=== PATIENT | female | born 1950 | race Caucasian/White ===

== ENCOUNTER 2020-06-27 11:19 | Inpatient (IN) | payer MEDICARE, OTHER ==
[~2020-06-27] VITALS: Ht 175.3 cm; Wt 91.0 kg
[2020-06-27] MEDS ORDERED: XARELTO20 MG PO (11:41)
[2020-06-27] MEDS ORDERED: METFORMIN HCL1000 MG PO (11:42)
[2020-06-27] MEDS ORDERED: CARVEDILOL25 MG PO (11:42)
[2020-06-27] MEDS ORDERED: HYDROCHLOROTH12.5 M1 PO (11:42)
[2020-06-27] MEDS ORDERED: GLYBURIDE5 MG PO (11:42)
[2020-06-27] MEDS ORDERED: DORZOLAMIDE-TIM10 ML OU (11:42)
[2020-06-27] MEDS ORDERED: BUPROPION HCL100 MG PO (11:42)
[2020-06-27] MEDS ORDERED: SIMVASTATIN40 MG PO (11:42)
--- NOTE | 2020-06-27 16:20 | NUR ---
Patient arrives to unit via stretcher, able to transfer to bed independently, reports weakness with movement. Vital signs taken, assessment complete. Patient denies pain in labia at this time. This RN in room to continue assessment.
--- NOTE | 2020-06-27 16:34 | NUR ---
Dr. Dudley in room to assess patient and discuss POC
--- NOTE | 2020-06-27 17:45 | NUR ---
Lab in room to draw blood cultures
--- NOTE | 2020-06-27 18:09 | NUR ---
Dr. Araujo in room assessing patient and discussing POC
--- NOTE | 2020-06-27 18:30 | NUR ---
Patient reports feeling nauseous, prn zofran given. Patient requests a bowl of chicken noodle soup, which is accommodated. Brother, Candido, is in room visiting. Patient denies pain or further needs. IV abx finished infusing. Call light within reach.
--- NOTE | 2020-06-27 20:17 | NUR ---
IN TO DO ASSESSMENT AND GIVE HS MEDS. PT C/O 1-05/18 PAIN ON TOP OF SCALP. STATES "MY CROTCH AREA ISNT SO MUCH PAIN, ITS THE TOP OF MY HEAD FROM BEING ON ALL THESE MEDICATIONS". 500MG PO TYLENOL GIVEN. THEN PT STATES "ITS NOT SO MUCH ABOUT PAIN IT IS ABOUT BEING SEDATED. WHAT DO YOU HAVE THAT WILL KNOCK ME OUT?". PT SEEMED SATISFIED TAKING HER TYLENOL AND COREG AND WILL CALL IF SHE WANTS ANYTHING FURTHER. DISCUSSED PLAN OF CARE FOR THE NIGHT, EXPLAINED NEXT DOSE OF IV ANTIBIOTICS AND ONGOING IVF AND UPCOMING BLOOD SUGAR CHECK AND PT IS AGREEABLE.
--- NOTE | 2020-06-27 22:00 | NUR ---
PT ENCOURAGED TO GET UP AND TRY TO VOID, UP TO BSC TO VOID. STEADY ON FEET, ABLE TO VOID 150ML DARK MERI URINE. BACK TO BED. DR BURRELL CALLED TO UPDATE REGARDING URINE OUTPUT.
--- NOTE | 2020-06-27 22:37 | NUR ---
1L LR BOLUS STARTED. PT TRYING TO SLEEP, DENIES NEEDS.
--- NOTE | 2020-06-27 22:43 | EKG ---
[facility] [address] [facility] [place] [id number] Signed Atrial fibrillation Right bundle branch block T wave abnormality, consider inferior ischemia Abnormal ECG No previous ECGs available Confirmed by DALTON BURRELL MD ([id number]) on 06/27/2020 10:42:48 PM Electronically Signed By: DALTON BURRELL MD 06/27/20 2243 PATIENT NAME: LIDA BONILLA Electrocardiogram DATE OF : 52 PHYSICIAN: DALTON BURRELL MD REPORT #: [id number] REPORT IS CONFIDENTIAL AND NOT TO BE RELEASED WITHOUT AUTHORIZATION
--- NOTE | 2020-06-28 | NUR ---
IN TO DO ASSESSMENT AND HANG IV ABX. PT STATES SHE IS TRYING TO SLEEP, DENIES OTHER NEEDS. ORAL TEMP IS 100.4, WILL CONT TO MONITOR. DENIES NEED TO VOID AT THIS TIME.
--- NOTE | 2020-06-28 | NUR ---
IN TO DO ASSESSMENT AND HANG IV ABX. PT WAS SLEEPING, AWAKENS EASILY AND STATES SHE JUST WANTS TO GO BACK TO SLEEP, DENIES PAIN. ORAL TEMP IS 100.8, WILL CONT TO MONITOR.
--- NOTE | 2020-06-28 00:24 | NUR ---
500MG PO TYLENOL GIVEN FOR ORAL TEMP OF 101.4
--- NOTE | 2020-06-28 02:13 | NUR ---
PT RESTING WITH EYES CLOSED, RESP EVEN AND UNLABORED, HR 80'S.
--- NOTE | 2020-06-28 04:15 | NUR ---
PT CALLS BECAUSE SHE DISLODGED HER IV SITE. IV FOUND ON BED, CATHETER TIP INTACT. IV IN UPPER ARM NO LONGER WORKING, NEW IV STARTED IN RIGHT WRIST. PT GOT UP AND AMBULATED TO , HAD BOWEL MOVEMENT AND VOIDED INTO TOILET. IVF RESTARTED. PT NOTICED BROWN DISHCARGE COMING FROM SOMEWHERE, NOT SURE WHERE IT WAS COMING FROM. ONCE PT IN BED, LEFT LABIA AREA INSPECTED AND OPEN SPOT NOTICED AT BOTTOM OF LABIA AREA, DARK BROWN DISCHARGE COMING FROM OPEN SPOT, VERY ODOROUS. AREA CLEANED AND ABD PAD APPLIED TO CATCH DRAINAGE. PT HAS NO REQUESTS AT THIS TIME, WANTING TO TRY TO SLEEP. CALL LIGHT IN REACH.
--- NOTE | 2020-06-28 06:30 | NUR ---
PT WAS ABLE TO SLEEP FOR A BIT, NOW AWAKE THINKING ABOUT BREAKFAST.
--- NOTE | 2020-06-28 08:00 | NUR ---
IN PATIENT'S ROOM FOR ASSESSMENT, VITALS, AND CAREER ADVISOR. PATIENT UP TO BATHROOM - VOIDS AND HAS SMALL BM. PT'S LEFT LABIA CELLULITIS STARTED TO DRAIN A BROWNISH, FOUL SMELLING ODOR THROUGH THE NIGHT. PATIENT ANXIOUS ABOUT BEING IN THE HOSPITAL AND EXPRESSES THIS THROUGH HER FEAR OF AND THE FACT THAT SHE HAS HAD LOVED ONES COME TO THE HOSPITAL AND NEVER RETURN HOME. PLAN OF CARE DISCUSSED WITH PATIENT. PT AFEBRILE AT THIS TIME, BUT HAD ANOTHER FEVER IN THE NIGHT. PT REMAINS IN AFIB, HR 70-90s. PT CHRONICALLY HAS AFIB. PT ACCEPTING OF INSULIN THIS AM, HOWEVER ALSO EXPRESSES HOW HARD SHE HAS BEEN WORKING TO DECREASE HER MEDICATION BURDEN AT HOME.
--- NOTE | 2020-06-28 09:28 | NUR ---
v/s and I&Os done, room picked up. fresh water given. no other needs at this time. call light with in reach
[2020-06-28] MEDS ORDERED: CEPHALEXIN500 MG PO (09:31)
--- NOTE | 2020-06-28 11:11 | NUR ---
DR. BURRELL IN ROOM TO SEE PATIENT AT THIS TIME.
--- NOTE | 2020-06-28 11:52 | NUR ---
CULTURE COLLECTED OF DRAINING AREA ON INNER LEFT LABIA AREA. PT TOLERATED WELL. PT'S PERINEAL AREA REMAINS INFLAMMED, INDURATED, REDENNED. IF PUSHING ON THE LEFT LABIAL AREA, DARK BROWNISH FOUL SMELLING EXUDATE IS NOTED OUT OF A SMALL DARK PENCIL TIP SIZE OF OPENING. NEW ABD PAD PROVIDED TO PLACE IN ATTENDS. PT TO ORDER HER OWN LUNCH. OVERALL PATIENT STATES SHE IS FEELING BETTER COMPARED TO YESTERDAY. AFEBRILE AT THIS TIME. IVF CONTINUE. WILL CONTINUE TO MONITOR. PT GIVEN ORAL POTASSIUM.
--- NOTE | 2020-06-28 13:37 | NUR ---
DR. HOSKINS IN TO SEE PATIENT. PATIENT'S WOUND IS BEING DRAINED MANUALLY AT THE BEDSIDE. IT CONTINUES TO HAVE THE FOUL SMELL AND BROWNISH COLOR. PT ATE MOST OF HER LUNCH. PT TO STAY IN CCU TODAY. CONTINUE TO MONITOR.
--- NOTE | 2020-06-28 13:37 | NUR ---
PT ALERT, ORIENTED AND WHEN I INTRODUCED MYSELF, PT WONDERED IF SOMEONE HAD TOLD ME ABOUT HER. SEEMED MUCH MORE AT EASE WHEN I INFORMED HER I TRY TO VISIT ALL PTS. PT BEGAN TO RELAX AND BEGAN TO TELL ME HER PARRISH JOURNEY.AND TEARS FLOWED, HER FEAR OF HOSPITALS. "IT'S BEEN 60 YRS SINCE I HAVE BEEN IN A HOSPITAL". PEOPLE SHE LOVED ACCORDING TO HER, WENT IN ALIVE AND NEVER CAME OUT ALIVE. GAVE REASURRANCE AND COMFORT. PT ACCEPTED [facility] AND ASKED FOR PRAYER. WILL CONTINUE TO FOLLOW
--- NOTE | 2020-06-28 14:37 | NUR ---
pt. gave herself a bed bath. SYSTEM TRAINER washed her back and hair. bed done room picked up no other needs at this time. call light with in reach
--- NOTE | 2020-06-28 17:01 | NUR ---
Spoke with pt and she states she lives alone in an apartment with 15 steps. She does not use any dme, had sleep study and does NOT have sleep apnea. She drives. Her brother EVETTE lives in [place] and assists her as needed. She denies financial issues and is aware of [employer] and [employer]. She does not use. Plans on dc to home when cleared medically.
--- NOTE | 2020-06-28 17:02 | NUR ---
Pt lives in [place] in a 1 story with his . Has a walker, but does not use. Also uses canes. He and his has custody of their 2 yo granddaughter. Pt states he has noticed weakness for 5 days and h had pneumonia in the past. Plans on dc to home when cleared medically. Denies need for resources or DME.
--- NOTE | 2020-06-28 18:32 | NUR ---
DR. CHEN IN ROOM TO MANUALLY DRAIN HER LABIAL ABSCESSED AREA. MORE DRAINAGE AND EVEN SOME GAS BUBBLES NOTED WHILE DR. Salas DOING THIS. PT NOTIFIED THAT SHE IS GOING TO TRANSFER TO THE MEDICAL FLOOR. PT ANXIOUS ABOUT THIS.
--- NOTE | 2020-06-28 19:45 | NUR ---
CALL LIGHT ANSWERED. SBA. PATIENT WAS UP TO THE TOILET AND BACK TO BED. V/S AND I&O'S DONE AND RECORDED BY PRIMARY RN PERCY.
--- NOTE | 2020-06-28 19:53 | NUR ---
RECEIVED REPORT FROM CCU RN. PATIENT MOVED FROM CCU TO THE FLOOR BY COMMERCIAL LENDING ASSISTANT. PATIENT ORIENTED TO ROOM, FLOOR, AND CALL LIGHT. PATIENT DENIES ANY QUESTIONS OR CONCERNS AT THIS TIME. PATIENT DENIES ANY NEEDS. CALL LIGHT IN REACH.
--- NOTE | 2020-06-28 20:20 | NUR ---
PATIENT ASSEMENT COMPLETED. PATIENT DENIES ANY PAIN. PATIENTS VITALS TAKEN AND RECORDED. INTAKE AND OUPUT RECORDED. PATIENT CONTINUES TO HAVE BROWN COLORED DRAINAGE FROM ANNAMARIE AREA. PATIENTS IV INFUSING PER ORDER. PATIENTS BS WAS 144. PATIENT REFUSED INSULIN AT THIS TIME. PATIENT EDUCATED ON IMPORTANCE OF INSULIN AND CONTROLLING BS. PATIENT PROVIDED WITH FRESH ICE WATER. NO FURTHER NEEDS NOTED. CALL LIGHT IN REACH.
--- NOTE | 2020-06-28 21:33 | NUR ---
PT IV ALARMING. PT STATED SHE HAD "JUST GOT INTO A DEEP SLEEP". CALL LIGHT WITHIN REACH. NO OTHER NEEDS.
--- NOTE | 2020-06-28 22:47 | NUR ---
PATIENT ASSISTED TO THE RESTROOM A 1PA. PATIENT WAS ABLE TO VOID AND HAVE LOOSE BM. PATIENT PROVIDED WITH FRESH PAD AND MESH PANTIES. PATIENT HAS DRAINAGE NOTED ON ANNAMARIE PAD. PATIENT IS BACK IN BED RESTING. NO FURTHER NEEDS NOTED. CALL LIGHT IN REACH.
--- NOTE | 2020-06-28 23:45 | NUR ---
SCHEDULED MEDICATIONS GIVEN PER ORDER. PATIENT DENIES ANY PAIN. PATIENT REPORTS CONCERN OF AN ELEVAETD TEMP. TEMP TAKEN PER PATIENTS REQUEST AND FOUND TO BE 98.8. NO FURTHER NEEDS NOTED. CALL LIGHT IN REACH.
--- NOTE | 2020-06-28 23:45 | NUR ---
CALL LIGHT ANSWERED. SBA TO THE BATHROOM AND BACK TO BED. PATIENT REFUSED TO PUT SOCKS ON. PATIENT REFUSED TO HAVE THE HAT ON TO THE TOILET. PRIMARY RN WAS WITH PATIENT.
--- NOTE | 2020-06-29 00:07 | NUR ---
PATIENT ASSISTED TO THE RESTROOM BY AUDIE MOREL. UPON RETURNING BACK TO BED PATIENT BECAME NAUSEOUS. PATIENT PROVIDED WITH PRN NAUSEA MEDICATION AND COOL RAG. PATIENT DENIES ANY FURTHER NEEDS. CALL LIGHT IN REACH.
--- NOTE | 2020-06-29 02:24 | NUR ---
REPOSITIONED PILLOW UNDER PATIENTS LEFT UPPER THIGH PER REQUEST. PATIENT DENIED ANY PAIN WITH MOVEMENT OR AT REST. PATIENT DENIES ANY FURTHER NEEDS. CALL LIGHT IN REACH.
--- NOTE | 2020-06-29 03:52 | NUR ---
PATIENT IS RESTING IN BED WITH EYES CLOSED, RR 17. CALL LIGHT IN REACH.
--- NOTE | 2020-06-29 04:21 | NUR ---
PATIENT ASSISTED TO THE RESTROOM A SBA. PATIENT WAS ABLE TO VOID. PATIENT IS NOW BACK IN BED RESTING. PATIENT DENIES ANY PAIN OR NAUSEA. PATIENT DENIES ANY FURTHER NEEDS. PATIENTS TEMP CHECKED PER REQUEST AND TEMP WAS 97.5. CALL LIGHT IN REACH.
--- NOTE | 2020-06-29 04:43 | NUR ---
PATIENT RESTED WELL THROUGHOUT THE SHIFT. PATIENT IS ON A 60G DIET. PATIENT IS ON RA. PATIENT IS A SBA. PATIENTS ANNAMARIE ARE HAS BROWN COLORED DRAINAGE AND UPPER ANNAMARIE AREA IS RED AND HARD TO THE TOUCH. PATIENT DENIES PAIN. PATIENT RECEIVED PRN NAUSEA MEDICATION X1. PATIENT IS AAOX4 AND USES CALL LIGHT APPROPRIATELY.
--- NOTE | 2020-06-29 07:04 | NUR ---
CANOPY INSPECTOR IN ROOM TO TAKE VITALS. PATIENT DENIES ANY NEEDS. CALL LIGHT IN REACH.
--- NOTE | 2020-06-29 07:15 | NUR ---
SHIFT REPORT FROM PERCY PERDUE INCLUDED: pt has some anxiety (her baseline) about cares, and RN encourages us to cluster cares as much as possible to ease the pts mind and not overstimulate. pt is getting her abcess drained by MD Lorrie Dos Santos. pt had a fever while in CCU, and current orders are to collect another sample for cultures is pts fever gets >100.7. pt currently in bed, eyes closed, breathing even and unlabored, table and call light within reach.
--- NOTE | 2020-06-29 08:00 | NUR ---
ASSESSMENT + MED PASS + CBG pt assessment complete, VSS, pt is afebrile at this time. pt cellulitis/abcess site appears red and swollen, pt reports its actually improved from yesterday since it appears "smaller and less filled out". pt reports that there is 1/10 tolerable intermittent pain to the area, and none at this time. pt CBG was 150, 1 unit insulin given per sliding scale orders. pt denies further needs at this time, table and call light within reach, pt having breakfast sitting upright in bed.
--- NOTE | 2020-06-29 10:00 | NUR ---
ROUNDING pt in bed, watching tv at this time. table and call light within reach. pt denies needs.
--- NOTE | 2020-06-29 11:15 | NUR ---
PATIENT UP IN CHAIR, AM CARE DONE. LINEN CHANGED, CALL LIGHT AND PERSONAL ITEMS WITHIN REACH
--- NOTE | 2020-06-29 12:10 | NUR ---
CBG + MED PASS pts CBG was 257, 5 units insulin given per sliding scale orders. pt up to chair, linens have been changed by DIVISION TOLL WIRE CHIEF, pt having lunch at this time. pt denies pain and nausea. table and call light within reach.
--- NOTE | 2020-06-29 13:49 | NUR ---
PATIENT UP IN CHAIR, VITALS AND I&OS CAHRTED. DR CHEN AT BEDSIDE NOW.
--- NOTE | 2020-06-29 13:59 | NUR ---
PT SITTING UP IN BED, WATCHING TV. SHE IS ALERT AND ORIENTED AND INFORMED ME THAT SHE IS FEELING BETTER. HER WHITE COUNTS ARE IMPROVING. HAD GOOD VISIT WITH PT. GAVE BLESSING AND WILL FOLLOW
--- NOTE | 2020-06-29 14:29 | NUR ---
ADMINISTERED SCHEDULED VANCO. UNPLUGGED PT IV PUMP FOR AMBULATING IN THE BOCANEGRA.
--- NOTE | 2020-06-29 15:30 | NUR ---
Spoke with Scooby while she is walking in the ambriz. States she is feeling better. Denies needs. She then states one visit with me was enough yesterday.
--- NOTE | 2020-06-29 15:33 | NUR ---
ADMISSION SCREENING TRIGGERED A "NUTRITION NOT WNL" FROM HAVING A POOR APPETITE FOR 3 DAYS PRIOR TO ADMISSION. PATIENT STATES SHE IS FEELING A LOT BETTER THIS AFTERNOON AND SHE JUST FINISHED WALKING IN THE HALLS. SHE SAID SHE IS EATING BETTER. SHE WAS NIBBLING ON HER SANDWICH FROM LUNCH WHEN I WAS TALKING TO HER AND SHE HAS A SNACK ON HER BEDSIDE TABLE. SHE HAS TYPE 2 DM AND HAS BEEN WORKING HARD TO GET HER BLOOD SUGARS DOWN TO WHERE SHE DIDN'T NEED TO TAKE ANY MEDICATIONS, BUT THEN SHE GOT THIS INFECTION AND HER BLOOD SUGARS WENT UP. SHE HAS GOOD SPIRITS ABOUT HOW THINGS ARE GOING FOR HER HERE. SHE DOES NOT APPEAR TO BE AT NUTRITION RISK AT THIS TIME. WILL CONTINUE TO MONITOR.
--- NOTE | 2020-06-29 17:00 | NUR ---
MED PASS pt able to take all meds without difficulty. pt denies pain and nausea at this time. pt in chair, table and call light within reach.
--- NOTE | 2020-06-29 17:30 | NUR ---
MED PASS + CBG CBG was 297, 7 units given per sliding scale orders. pt up to bathroom at this time. pt back to chair. table and call light within reach.
--- NOTE | 2020-06-29 20:02 | NUR ---
RECEIVED REPORT FROM DAY SHIFT RN. PATIENT IS UP PACING ROOM. PATIENT REASSURED ABOUT CARE AND HOSPITAL STAY PATIENT IS NOW IN BED RESTING. NO NEEDS NOTED. CALL LIGHT IN REACH.
--- NOTE | 2020-06-29 21:30 | NUR ---
ULTRASOUND IN PATIENTS ROOM AT THIS TIME.
--- NOTE | 2020-06-29 22:00 | NUR ---
PATIENT ASSESMENT COMPLETED. PATIENTS VITALS TAKEN AND RECORDED. INTAKE AND OUPUT RECORDED. PATIENTS INTAKE AND OUPUT RECORDED. PATIENTS EVENING MEDICATIONS GIVEN PER ORDER. PATIENT DENIES ANY PAIN OR NAUSEA. PATIENT IS ON RA. PATIENT REMAINS INDEPENDENT IN THE ROOM. PATIENT IS SL AND IV FLUSHES WELL. PATIENT PROVIDED WITH FRESH ICE WATER. PATIENT DENIES ANY FURTHER NEEDS. CALL LIGHT IN REACH.
--- NOTE | 2020-06-30 00:23 | NUR ---
NEW IV STARTED. PATIENT TOLERATED ACTIVITY WELL. ABX INFUSING PER ORDER. PATIENT DENIES ANY PAIN OR NAUSEA. NO NEEDS NOTED. CALL LIGHT IN REACH.
--- NOTE | 2020-06-30 02:03 | NUR ---
PATIENT IS RESTING IN BED WITH EYES CLOSED, RR 17. KISHA LIGHT IN REACH.
--- NOTE | 2020-06-30 02:25 | NUR ---
IN TO SBA PT TO TOILET, PT STATES SHE'LL "BE IN FOR AWHILE", LET HER KNOW RN WILL BE SHORTLY TO CHECK IV FLUIDS
--- NOTE | 2020-06-30 02:47 | NUR ---
PATIENT UP TO USE THE RESTROOM. PATIENT WAS ABLE TO VOID. PATIENT IS NOW BACK IN BED RESTING. SCHEDULE ABX INFUSING PER ORDER. PATIENT DENIES ANY PAIN OR NASUEA. NO NEEDS NOTED. CALL LIGHT IN REACH.
--- NOTE | 2020-06-30 04:08 | NUR ---
ABX COMPLETED INFUSING. PT IS NOW SL. PATIENT DENIES ANY NEEDS. CALL LIGHT IN REACH.
--- NOTE | 2020-06-30 05:09 | NUR ---
PATIENT RESTED WELL THROUGHOUT THE SHIFT. PATIENT IS ON A 60G DIET. PATIENT IS ON RA. PATIENT IS SL. PATIENTS ANNAMARIE ARE HAS BROWN COLORED DRAINAGE AND UPPER ANNAMAREI AREA IS RED AND HARD TO THE TOUCH. PATIENT DENIES PAIN. PATIENT IS INDEPENDNET IN THE ROOM. PATIENT IS AAOX4 AND USES CALL LIGHT APPROPRIATELY.
--- NOTE | 2020-06-30 06:45 | NUR ---
IN TO GET VITALS, PT UP TO TOILET RECENTLY, NO FURTHER NEED AT THIS TIEM
--- NOTE | 2020-06-30 07:02 | NUR ---
PATIENTS MORNING MEDICATIONS GIVEN PER ORDER. PATIENT DENIES ANY PAIN OR NAUSEA. NO NEEDS NOTED. CALL LIGHT IN REACH.
--- NOTE | 2020-06-30 07:15 | NUR ---
SHIFT REPORT FROM PERCY PERDUE INCLUDED: pt had some anxiety at start of shift but it resolved through the evening and pt was able to get some rest. pts groin/labial area redness increased. pt had an otherwise uneventful evening. pt currently in bed, breathing even and unlabored, table and call light within reach.
--- NOTE | 2020-06-30 08:00 | NUR ---
ASSESSMENT + MED PASS + CBG pt assessment complete, VSS. pt denies pain and nausea at this time. pt occassionally talks to herself and consoles self about anxieties. pt reports that she IS anxious, but feels like she "will be ok" but occassionally mentions her anxiety meds (she couldnt recall the name), and that she sometimes "freaks out" and "gets aggressive" and "becomes bitchy". pt assured of her progress and her cares and therapeutic communication used. pt seemed to respond well at this time. pt in chair. pts CBG was 204, 3 units insulin given per sliding scale orders. pt able to take all morning meds without difficulty. pt in chair, table and call light within reach.
--- NOTE | 2020-06-30 10:35 | NUR ---
NEWLY ORDERED MED PASS pt in chair, watching TV. pt able to take med without difficulty. pt denies needs at this time. table and call light within reach.
--- NOTE | 2020-06-30 11:30 | NUR ---
CBG + MED PASS pts CBG was 204, 3 units given per sliding scale orders. pt in chair, awaiting lunch. table and call light within reach.
--- NOTE | 2020-06-30 12:30 | NUR ---
ROUNDING pt in room, sitting up to chair, watching tv. pt denies pain and nausea at this time. table and call light within reach.
--- NOTE | 2020-06-30 13:30 | NUR ---
ROUNDING pt in room, sitting up to chair, watching tv. pt denies pain and nausea at this time. table and call light within reach.
--- NOTE | 2020-06-30 14:30 | NUR ---
ROUNDING pt in shower at this time. call lights within reach.
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
--- NOTE | 2020-06-30 16:00 | NUR ---
ROUNDING pt in room, sitting up to chair, visiting with brother. pt denies pain and nausea at this time. table and call light within reach.
--- NOTE | 2020-06-30 17:00 | NUR ---
CBG + MED PASS pts CBG was 205, 3 units insuling given per sliding scale orders. pt able to take all meds without difficulty. table and call light within reach.
--- NOTE | 2020-06-30 19:46 | NUR ---
RECEIVED REPORT FROM DAY SHIFT RN. PATIENT IS UP TO RESTROOM NO NEEDS NOTED. CALL LIGHT IN REACH.
--- NOTE | 2020-06-30 20:40 | NUR ---
PATIENT ASSESMENT COMPLETED. PATIENTS VITALS TAKEN AND RECORDED. PATIENT DENIES ANY PAIN OR NASUEA. PATIENT ASSISTED FROM THE RECLINER TO THE BED. PATIENTS INTAKE AND OUPUT RECORDED. PATIENT DENIES ANY PAIN OR NAUSEA. PATIENT GIVEN SCHEDULED MEDICATIONS PER ORDER. PATIENT DENIES ANY NEEDS AT THIS TIME. CALL LIGHT IN REACH.
--- NOTE | 2020-06-30 23:51 | NUR ---
PATIENT IS RESTING IN BED WITH EYES CLOSED, RR 17. CALL LIGHT IN REACH.
--- NOTE | 2020-07-01 02:43 | NUR ---
PATIENTS SCHEDULED MEDICATIONS GIVEN PER ORDER. PATIENT DENIES ANY PAIN OR NAUSEA. CRACKERS AND SF SODA PROVIDED. PATIENT DENIES ANY FURTHER NEEDS. CALL LIGHT IN REACH.
--- NOTE | 2020-07-01 04:25 | NUR ---
PATIENT IS RESTING IN BED WITH EYES CLOSED, RR 17. CALL LIGHT IN REACH.
--- NOTE | 2020-07-01 05:02 | NUR ---
PATIENT RESTED WELL THROUGHOUT THE SHIFT. PATIENT IS ON A 60G DIET. PATIENT IS ON RA. PATIENTS ANNAMARIE ARE HAS BROWN COLORED DRAINAGE AND UPPER ANNAMARIE AREA IS RED AND HARD TO THE TOUCH. PATIENT DENIES PAIN. PATIENT IS INDEPENDENT IN THE ROOM. IV IS TKO AT THIS TIME. NO NAUSEA NOTED. PATIENT IS AAOX4 AND USES CALL LIGHT APPROPRIATELY.
--- NOTE | 2020-07-01 05:14 | NUR ---
PATIENTS VITALS TAKEN AND RECORDED. PATIENT UP TO THE RESTROOM. PATIENT ABLE TO VOID. INTAKE AND OUPUT RECORDED. NO NEEDS NOTED. CALL LIGHT IN REACH. IV REMAINS TKO. CALL LIGHT AND BELONGINGS WITHIN REACH.
--- NOTE | 2020-07-01 07:41 | NUR ---
this rn received report from brian golden. pt iw awake and is walking back from the restroom at this time. pt states that the netted underwear are uncomfortable this am, this rn offered depends underwear that are more comfortable for women and their creases, pt stated this sounds better. pt states that she hasn't noted any drainage this am and no pain.
--- NOTE | 2020-07-01 08:15 | NUR ---
THIS RN IN PTS ROOM TO CHECK ON PT AND GIVE MORNING MEDS. PT STATES THAT THE DEPENDS ARE HELPING NOT "TO FLOSS" HER LADY PARTS. PT STATES THAT SHE HAS NO CONCERNS THIS AM.
--- NOTE | 2020-07-01 12:32 | NUR ---
PT SITTING IN CHAIR, WATCHING TV. PT MENTIONED SHE IS WAITING ON LABS, AND NOT FEELING QUITE READY FOR DC. GAVE ENCOURAGEMENT AND BLESSING
--- NOTE | 2020-07-01 14:45 | NUR ---
THIS RN IN PTS ROOM TO CHECK ON PT. PT STATES THAT SHE IS FEELING ANXIOUS. THIS RN DISUCSSED WITH HER THAT WHEN LISA WATCHSTANDER IS DONE DRAWING BLOOD WE WILL KNOW MORE ABOUT HOW SHE IS DOING. PT STATES THAT TOLD HER THAT SHE IS STARTING TO GET BETTER AND THAT HER DIABTIS WILL MAKE IT SLOWER FOR HER TO GET BETTER. THIS RN ADDED ON EDUCATION ABOUT THIS, PT STATED UNDERSTANDING AND IS READY TO HEAR LAB RESULTS
--- NOTE | 2020-07-01 16:30 | NUR ---
THIS RN IN PTS ROOM TO START PTS VANCO. PT SITTING UP TO CHAIR AND STATES THAT SHE DID HAVE SOME DISCHARGE THIS AFTERNOON IN THE PAD. THIS RN NOTED THAT IS WAS A MODERATE AMOUNT OF DRAINAGE THAT APPEARED DARK RED/ BROWNISH IN COLOR. PT DENIES ANY PAIN AND THIS IS THE ONLY NOTED DRAINAGE TODAY
--- NOTE | 2020-07-01 17:30 | NUR ---
THIS RN IN PTS ROOM TO PASS PTS EVENING MEDS. PT SITTING IN THE CHAIR AND STATES THAT HER ANXIETY LEVEL IS MUCH BETTER AFTER HEARING THAT HER LABS ARE TRENDING DOWN TO THE RIGHT WAY. PT HAS NO OTHER CONCERNS AT THIS TIME
--- NOTE | 2020-07-01 18:29 | NUR ---
PATIENT AWAKE IN CHAIR, VITALS AND I&OS CHARTED. CALL LIGHT AND PERSONAL ITEMS WITHIN EASY REACH, NO OTHER NEEDS AT THIS TIME
--- NOTE | 2020-07-01 21:21 | NUR ---
THIS RN ORIENTING FLIGHT TEST DATA ACQUISITION TECHNICIAN, IN ROOM TO ROUND. pt AWAKE AND RESTING IN BED, PRIMARY RN GENET IN ROOM. COSIGNED SCHEDULED INSULIN. NO NEEDS VERBALIZED AT THIS TIME. CALL LIGHT REMAINS IN EASY REACH.
--- NOTE | 2020-07-01 21:27 | NUR ---
Pt up in chair, independent in room, cooperative, talkative. SL to tko to prevent iv clogging. redness and edema of pubic area present. voiding QS yellow urine. CBG 190 received 3 units SQ Humolog Insulin. procedures explained, cooperative. tolerating fluids well
--- NOTE | 2020-07-01 22:57 | NUR ---
RESTING, IN BED, NO RESP DISTRESS, EYES CLOSED, IVF INFUAING,
--- NOTE | 2020-07-02 00:40 | NUR ---
CALL LIGHT ON, PT SBA/INDP UP TO THE BATHROOM WITH IV POLE, NO FURTHER NEEDS AT THIS TIME
--- NOTE | 2020-07-02 03:09 | NUR ---
IV INFILTRATED, REPLACED, COOPERATIVE, PROCEDURE EXPLAINED, HYPERVERBAL AND FIDGETY, EASILY REORIENTED. IVF INFUSING. PINK CREAMY VAGINAL DISCHARGE NOTED IN ATTENDS.
--- NOTE | 2020-07-02 05:26 | NUR ---
Up to br, voiding QS, semi indeoendent in room. IVF infusing w/o problems, no c/o adverse reaction to vancomycin IV abx. Red and edematous pubic/otto area, pink cloudy drainage from L labia present. coop with assessment, hyperverbalk and fidgetty at times, easily redirectable, cooperative. has denies need for pain meds. tolerating fluids and diet.
--- NOTE | 2020-07-02 07:45 | NUR ---
this rn received report from donald golden. pt sitting up in chair and states thst she is doing well today and needs nothing at this time
--- NOTE | 2020-07-02 07:55 | NUR ---
this rn in pts room to give pt her morning meds and do morning assessment =. pt in bed and states that she is ready to get to the chair for brakfast. pt required minimal help to get to the bed due to the bed being so low. pt steady on her feet. pt denies pain at this time and denies any drainage this am. all questions answered and pt to eat her breakfast.
[2020-07-02] MEDS ORDERED: LEVOFLOXACIN500 MG PO (10:46)
--- NOTE | 2020-07-04 18:45 | DS ---
[facility] [address] [place] [address] [place], [place] [address] Signed ADMISSION DATE: 06/27/2020 DISCHARGE DATE: 07/02/2020 REASON FOR ADMISSION: Vulvar cellulitis with sepsis. SECONDARY DIAGNOSES: 1. Type 2 diabetes. Electronically Signed By: DEB CHEN DO 07/04/20 1845 PATIENT NAME: LIDA BONILLA DISCHARGE SUMMARY DATE OF : 52 REPORT #: [id number] PHYSICIAN: DEB CHEN DO PCP: OSIEL BALLESTEROS MD REPORT IS CONFIDENTIAL AND NOT TO BE RELEASED WITHOUT AUTHORIZATION [address] [place], [place] [address] Signed 2. Hypertension. 3. Atrial fibrillation. 4. Depression. CLINICAL FINDINGS: The patient presented to outpatient setting with complaints of vulvar swelling. On exam, she was noted to have significant erythema and induration of her left labia extending up into the left side of her mons pubis, but not beyond the hairline. With significant concern for abscess, she was sent directly to the ED for further evaluation where she was found to be febrile. CT was performed and was negative for abscess or other areas of fluid collection or loculation. PROCEDURE PERFORMED AND TREATMENT RENDERED: The patient was admitted to critical care unit due to sepsis with Internal Medicine consulted for these conditions as well as comorbid conditions including type 2 diabetes, hypertension, atrial fibrillation, and depression. She was started on vancomycin, Rocephin, and IV Flagyl. Blood cultures were collected. On hospital day #2, she began having purulent malodorous thick brown discharge from her labial swelling. This was collected for culture and Gram stain. Gram stain was significant for numerous gram-positive cocci and a few gram-negative rods. At this point, Flagyl was discontinued. Labial swelling began to gradually improve as swelling overlying the mons persisted and extended to include the right-sided labia. Imaging was repeated at this time via the ultrasound, which continued to be negative for areas of abscess formation or other fluid collection. IV antibiotic therapy was continued. The patient was moved to the med/surg floor after initial stabilization of sepsis. Final aerobic culture results of the purulent discharge significant for Streptococcus constellatus with sensitivities resulting. The patient has been stabilized medically and is being discharged home on levofloxacin 500 mg p.o. daily for 7 additional days of therapy per Internal Medicine recommendation and sensitivity reports. DISCHARGE DISPOSITION: Home in stable condition. DISCHARGE INSTRUCTIONS: 1. The patient will go home on levofloxacin 500 mg p.o. daily for 7 additional days. Her home medications will be continued with the only change at this point being carvedilol full tablet b.i.d. instead of half tablet b.i.d. The patient reports having sufficient medication that she does not need additional refill at this time. 2. Diabetic diet. Followup plans with primary care provider within the week and myself ATHLETIC MONITOR within the next 3 days for close outpatient followup. Unrestricted activity at Electronically Signed By: DEB CHEN DO 07/04/20 1845 PATIENT NAME: LIDA BONILLA DISCHARGE SUMMARY DATE OF : 52 REPORT #: [id number] PHYSICIAN: DEB CHEN DO PCP: OSIEL BALLESTEROS MD REPORT IS CONFIDENTIAL AND NOT TO BE RELEASED WITHOUT AUTHORIZATION [facility] [address] [place], [place] [address] Signed this time. All the patient's questions were answered to the best of my ability prior to discharge and to her apparent satisfaction. DO TAE Bailey/NILESH /[id number] Copies: ~ Electronically Signed By: DEB CHEN DO 07/04/20 1845 PATIENT NAME: LIDA BONILLA DISCHARGE SUMMARY DATE OF : 52 REPORT #: [id number] PHYSICIAN: DEB CHEN DO PCP: OSIEL BALLESTEROS MD REPORT IS CONFIDENTIAL AND NOT TO BE RELEASED WITHOUT AUTHORIZATION
== END 2020-07-02 12:07 | disposition home or self-care (01) | DRG 872 ==
LOC: ED 11:19 → CCU 16:09 → MS 06-28 08:05 → CCU 06-28 08:08 → MS 06-28 19:42
PROVIDERS: ADMIT Obstetrics & Gynecology; ATTEND Obstetrics & Gynecology
DX: A40.8 Other streptococcal sepsis (principal); I48.21 Permanent atrial fibrillation; N76.2 Acute vulvitis; Z20.822 Contact with and (suspected) exposure to COVID-19; I10 Essential (primary) hypertension; E11.9 Type 2 diabetes mellitus without complications; E78.5 Hyperlipidemia, unspecified; F32.9 Major depressive disorder, single episode, unspecified; H40.9 Unspecified glaucoma; E66.9 Obesity, unspecified; Z88.0 Allergy status to penicillin; Z79.899 Other long term (current) drug therapy; Z79.01 Long term (current) use of anticoagulants; Z79.84 Long term (current) use of oral hypoglycemic drugs; Z68.29 Body mass index [BMI] 29.0-29.9, adult
CPT/HCPCS: 36415; 72193; 76857; 80048; 80053; 80202; 83036; 83605; 83735; 85007; 85025; 85032; 87040; 93005; 93010; C9803; J0696; J1815; J2405; J3370; J3490; J7050; J7060; J7121; Q9967; U0003

== ENCOUNTER 2020-07-07 14:12 | Emergency (ER) | payer MEDICARE, OTHER ==
[~2020-07-07] VITALS: Ht 175.3 cm; Wt 102.7 kg
[~2020-07-07 14:12] MED LIST: BUPROPION HCL100 MG PO; CARVEDILOL25 MG PO; CEPHALEXIN500 MG PO; DORZOLAMIDE-TIM10 ML OU; GLYBURIDE5 MG PO; HYDROCHLOROTH12.5 M1 PO; LEVOFLOXACIN500 MG PO; METFORMIN HCL1000 MG PO; SIMVASTATIN40 MG PO; XARELTO20 MG PO
--- OUTSIDE RECORDS SUMMARY | 2020-07-07 14:14 | XMS ---
PreManage Notification: LIDA BONILLA [employer] Events No recent Security Events currently on file CRITERIA MET - History of Sepsis Dx - [facility] - 2 Visits in 30 Days CARE PROVIDERS There are no care providers on record at this time. Dinesh has no Care Guidelines for this patient. [facility] MO.) [facility] NOTE: Visits indicate total known visits. ED/UCC VISIT TRACKING (12 MO.) [facility]07[facility]2020 14[facility] COMPLAINT: - HIGH B/P 06/27/2020 11:20 [facility] TYPE: Emergency COMPLAINT: - POSSIBLE ABSCESS INPATIENT VISIT TRACKING (12 MO.) 06/27/2020 16:09 [facility] TYPE: Medical Surgical COMPLAINT: - LEFT LABIAL ABCESS DIAGNOSES: - nursing home (current) use of oral hypoglycemic drugs - Obesity, unspecified - long term care pharmacist (current) use of oral hypoglycemic drugs - Essential (primary) hypertension - Body mass index [BMI] 29.0-29.9, adult - Other streptococcal sepsis - Major depressive disorder, single episode, unspecified - Body mass index [BMI] 29.0-29.9, adult - Hyperlipidemia, unspecified - Permanent atrial fibrillation - nursing home (current) use of anticoagulants - Acute vulvitis - Allergy status to penicillin - Acute vulvitis - Permanent atrial fibrillation - Major depressive disorder, single episode, unspecified - Unspecified glaucoma - Other skilled nursing (current) drug therapy - Sepsis, unspecified organism - nursing home (current) use of anticoagulants - Other skilled nursing (current) drug therapy - Unspecified glaucoma - Hyperlipidemia, unspecified - Obesity, unspecified - Type 2 diabetes mellitus without complications - Allergy status to penicillin - Type 2 diabetes mellitus without complications - Other streptococcal sepsis - Essential (primary) hypertension [email or web address]
[2020-07-07] MEDS ORDERED: LASIX20 MG PO (18:02)
[2020-07-07] MEDS ORDERED: K-TAB10 MEQ PO (18:02)
--- NOTE | 2020-07-08 12:47 | EKG ---
[facility] [address] [facility] [place], [place] [address] Signed Atrial fibrillation Right bundle branch block Abnormal ECG When compared with ECG of 27-JUN-2020 12:01, No significant change was found Confirmed by GREGORIA CAST DO ([id number]) on 07/08/2020 12:46:58 PM Electronically Signed By: GREGORIA CAST DO 07/08/20 1247 PATIENT NAME: BONILLALIDA Electrocardiogram DATE OF : 52 PHYSICIAN: GREGORIA CAST DO REPORT #: [id number] REPORT IS CONFIDENTIAL AND NOT TO BE RELEASED WITHOUT AUTHORIZATION
== END 2020-07-07 18:20 | disposition home or self-care (01) ==
LOC: ED 14:12
DX: I10 Essential (primary) hypertension (principal); R60.0 Localized edema; E11.9 Type 2 diabetes mellitus without complications; E78.00 Pure hypercholesterolemia, unspecified; I48.91 Unspecified atrial fibrillation; Z88.0 Allergy status to penicillin; Z79.899 Other long term (current) drug therapy; Z79.84 Long term (current) use of oral hypoglycemic drugs
CPT/HCPCS: 71045; 80053; 81001; 83605; 83735; 83880; 84484; 85025; 93005; 93010; 96365; 96375; 99284-25; J1940; J3475

== ENCOUNTER 2022-11-09 09:25 | Day surgery (SDC) | payer MEDICARE, OTHER ==
[2022-11-05 11:17] VITALS: BP 203/76
[~2022-11-09] VITALS: Ht 175.3 cm; Wt 90.0 kg
[~2022-11-09 09:25] MED LIST changes: +K-TAB10 MEQ PO; +LASIX20 MG PO
[2022-11-09 09:42] VITALS: BP 156/69
--- NOTE | 2022-11-09 12:01 | NUR ---
11/09/22 1201 Fabiola Fine 1149- PT ARRIVES TO PACU AWAKE, STATES "I'M READY TO GO OUT OF HERE". MONITORS APPLIED. PT COMES IN ON O2 BUT REMOVES ON OWN. TOLERATING WELL. PT TALKING FULL SENTENCES AND ASKING QUESTIONS.
[2022-11-09 12:25] VITALS: BP 206/75
--- NOTE | 2022-11-09 14:14 | OR ---
[facility] [address] [place], [place] [address] Signed DATE OF OPERATION: 11/09/2022 SURGEON: Popeye Lazo MD PREOPERATIVE DIAGNOSIS: History of six polyps 2021, three of them tubular adenomas. POSTOPERATIVE DIAGNOSIS: Polyps x4. PROCEDURE: Total colonoscopy to cecum with cold snare polypectomy x2 and cold morcellation polypectomy x2. ANESTHESIA: Intravenous sedation propofol infusion, Mandy Dejesus CRNA. INDICATIONS: This 72-year-old white woman is a patient Dr. Osiel Felipe, underwent colonoscopy in 2021 and found to have six polyps, three of which were tubular adenomas. She has no symptoms of bleeding, diarrhea or constipation. Does have family history of colon cancer in a paternal aunt. She is here for early surveillance colonoscopy given the number of polyps previously noted. She understands the risk of bleeding, infection, and perforation related to colonoscopy and wished to proceed. FINDINGS: The prep was good. Complete colonoscopy was undertaken of the cecum. There were two polyps in the right colon, one in the transverse and another in the left colon sigmoid area. All were excised. PROCEDURE IN DETAIL: The patient was brought to the endoscopy suite and placed in lateral decubitus position given intravenous sedation to the point of slurred speech and nystagmus. Full cardiopulmonary monitoring was maintained. The conduit mechanic administered propofol through the procedure. Digital rectal examination was normal except for external hemorrhoidal changes. An Olympus video colonoscope was passed into the rectum and manipulated throughout the colon, ultimately intubating the cecum itself. The ileocecal valve and appendiceal orifice were normal. Scope was withdrawn from that point. Examination showed promptly Electronically Signed By: POPEYE LAZO MD 11/09/22 1414 PATIENT NAME: LIDA BONILLA OPERATIVE REPORT DATE OF : 52 REPORT #: [id number] PHYSICIAN: POPEYE LAZO MD PCP: OSIEL FELIPE MD REPORT IS CONFIDENTIAL AND NOT TO BE RELEASED WITHOUT AUTHORIZATION [facility] [address] [place], [place] [address] Signed in the proximal ascending colon, a small sessile adenomatous appearing polyp, this was excised with cold snare technique. Scope was withdrawn. Further another small polyp was noted, this was excised with cold morcellation technique. Further withdrawal showed another polyp in the transverse colon, also excised with cold snare technique and ultimately a small polyp of the sigmoid, excised with cold morcellation technique. Retroflexed view of the rectum was normal. Scope was removed. The patient was taken to the recovery room in good condition. CONCLUDING DIAGNOSIS: Polyps x4. PLAN: Recommend repeat colonoscopy in 3-5 years, sooner if clinically indicated. She will return to the ongoing care of Dr. Felipe. MD MARIA EUGENIA Salazar/NILESH /[id number] cc: Osiel Felipe MD Copies: OSIEL FELIPE MD ~ Electronically Signed By: POPEYE LAZO MD 11/09/22 1414 PATIENT NAME: LIDA BONILLA OPERATIVE REPORT DATE OF : 52 REPORT #: [id number] PHYSICIAN: POPEYE LAZO MD PCP: OSIEL FELIPE MD REPORT IS CONFIDENTIAL AND NOT TO BE RELEASED WITHOUT AUTHORIZATION
--- NOTE | 2022-11-09 22:43 | EKG ---
[facility] [address] [facility] [place] [address] Signed Sinus bradycardia Right bundle branch block Abnormal ECG When compared with ECG of 07-JUL-2020 14:28, Sinus rhythm has replaced Atrial fibrillation T wave inversion no longer evident in Anterior leads Confirmed by Maria Del Carmen Evangelista MD () on 11/09/2022 10:43:00 PM Electronically Signed By: MARIA DEL CARMEN EVANGELISTA MD 11/09/22 2243 PATIENT NAME: LIDA BONILLA Electrocardiogram DATE OF : 52 PHYSICIAN: MARIA DEL CARMEN EVANGELISTA MD REPORT #: [id number] REPORT IS CONFIDENTIAL AND NOT TO BE RELEASED WITHOUT AUTHORIZATION
--- NOTE | 2022-11-14 11:38 | PATH ---
[facility] [address] [place], [place] [address] Signed SPECIMEN(S): A ASCENDING/RIGHT COLON POLYP SPECIMEN(S): B ASCENDING/RIGHT COLON POLYP SPECIMEN(S): C TRANSVERSE COLON POLYP SPECIMEN(S): D DESCENDING/LEFT COLON POLYP SPECIMEN SOURCE: A. ASCENDING/RIGHT COLON POLYP B. ASCENDING/RIGHT COLON POLYP C. TRANSVERSE COLON POLYP D. DESCENDING/LEFT COLON POLYP CLINICAL HISTORY: Preop: History of polyps, family history of colon CA. Postop: Polyps x4. FINAL PATHOLOGIC DIAGNOSIS: A. Ascending/right colon polyp: - Tubular adenoma (2 fragments). B. Ascending/right colon polyp: - Tubular adenoma (1 fragment). C. Transverse colon polyp: - Tubular adenoma (2 fragments). D. Descending/left colon polyp: - Tubular adenoma (2 fragments). JVR:[id number] MICROSCOPIC EXAMINATION: Histologic sections of all submitted blocks are examined by light microscopy. These findings, together with the gross examination, support the pathologic diagnosis. GROSS DESCRIPTION: A. The specimen, labeled and designated "Bonilla, 1, " and designated on the requisition "ascending/right colon polyp," is received in formalin and consists of two tena soft tissue fragments, ranging from 0.2-0.3 cm. Entirely submitted in (A1). B. The specimen, labeled and designated "Bonilla, 2" and designated on the requisition "ascending/right polypectomy," is received in formalin and consists of two tena soft tissue fragments, ranging from 0.1-0.2 cm. Entirely submitted in (B1). C. The specimen, labeled and designated "Bonilla, 3" and designated on the requisition "transverse polypectomy," is received in formalin and consists of PATIENT NAME: LIDA BONILLA PATHOLOGY DATE OF : 52 REPORT #: [id number] PHYSICIAN: BERTHA PRICE PCP: OSIEL BALLESTEROS MD REPORT IS CONFIDENTIAL AND NOT TO BE RELEASED WITHOUT AUTHORIZATION [facility] [address] [place], [place] [address] Signed four tena soft tissue fragments, ranging from 0.2-0.3 cm. Entirely submitted in (C1). D. The specimen, labeled and designated "Elle, Tamra" and designated on the requisition "descending/left polypectomy," is received in formalin and consists of three tena soft tissue fragments, ranging from 0.2-0.3 cm. Entirely submitted in (D1). AC (under the direct supervision of a pathologist) The Gross Description was prepared using a voice recognition system. The report was reviewed for accuracy; however, sound-alike word errors, addition and/or deletions may occur. If there is any question about this report, please contact Client Services. PERFORMING LABORATORY: Technical component was performed by [facility] [employer], [address] [place] [id number] (CLIA# [id number]). Professional interpretation was performed by [facility] - [facility], [address] [place] [id number] (CLIA#: [id number]). Diagnostician: Bobby Lorenzana MD Pathologist Electronically Signed 11/14/2022 Copies: ~ PATIENT NAME: LIDA BONILLA PATHOLOGY DATE OF : 52 REPORT #: [id number] PHYSICIAN: BERTHA PATHOLOGY PCP: OSIEL BALLESTEROS MD REPORT IS CONFIDENTIAL AND NOT TO BE RELEASED WITHOUT AUTHORIZATION
== END 2022-11-09 12:32 | disposition home or self-care (01) ==
LOC: DS 09:25 → OPS 09:25 → DS 10:00 → OPS 10:00
PROVIDERS: ATTEND Surgery
PROC: 0DBL8ZZ Excision of Transverse Colon, Via Natural or Artificial Opening Endoscopic (ICD-10-PCS; 2022-11-09)
PROC: 0DBK8ZZ Excision of Ascending Colon, Via Natural or Artificial Opening Endoscopic (ICD-10-PCS; principal; 2022-11-09 10:55)
DX: Z12.11 Encounter for screening for malignant neoplasm of colon (principal); Z86.010 Personal history of colon polyps; I10 Essential (primary) hypertension; I48.91 Unspecified atrial fibrillation; Z80.0 Family history of malignant neoplasm of digestive organs; H40.9 Unspecified glaucoma; E66.9 Obesity, unspecified; Z68.29 Body mass index [BMI] 29.0-29.9, adult; D12.2 Benign neoplasm of ascending colon; D12.4 Benign neoplasm of descending colon; D12.3 Benign neoplasm of transverse colon
CPT/HCPCS: 00811; 93005; 93010; J2704; J7121

== ENCOUNTER 2024-01-26 11:22 | Emergency (ER) | payer MEDICARE, OTHER ==
[~2024-01-26] VITALS: Ht 175.3 cm; Wt 85.1 kg
[2024-01-26] MEDS ORDERED: FUROSEMIDE20 MG PO (11:42)
[2024-01-26] MEDS ORDERED: LABETALOL HCL100 MG PO (11:42)
[2024-01-26] MEDS ORDERED: LISINOPRIL-HCT1 EAC1 PO (11:43)
[2024-01-26] MEDS ORDERED: SODIUM CHLORIDE 0.9% 1,000 ML IV ONE (12:00)
[2024-01-26 12:23] LABS: BASOPHILS 0.6 % (0-2); EOSINOPHILS 2.2 % (0-6); HEMATOCRIT 36.4 % (35.0-50.0); HEMOGLOBIN 12.1 g/dL (12.0-18.0); MCH 30.3 (27-36); MCHC 33.3 g/dl (30-36); MCV 91.1 fl (81-99); MONOCYTES 7.3 % (0-12); NEUTROPHILS 69.9 % (39-80); PLATELET COUNT 319 K/uL (140-440); RDW 13.1 (10.5-15.0)
[2024-01-26 12:44] LABS: ALBUMIN 3.7 g/dL (3.4-5.0); ALBUMIN/GLOBULIN RATIO 1.09 (1.1-2.4); BILIRUBIN, TOTAL 0.4 ng/dL (0.2-1.0); BUN/CREATININE RATIO 22.29 (6.0-28.6); CALCIUM 9.1 mg/dL (8.5-10.1); CREATININE, SERUM 1.57 mg/dL (0.55-1.02); PROTEIN, TOTAL 7.1 g/dL (6.4-8.2)
[2024-01-26 12:57] LABS: INFLUENZA B NAA NEGATIVE (NEGATIVE); RESPIRATORY SYNCYTIAL VIR NAA NEGATIVE (NEGATIVE)
[2024-01-26 14:03] LABS: BILIRUBIN, URINE NEGATIVE (negative); BLOOD/HGB, URINE SMALL (Negative); KETONE, URINE NEGATIVE (Negative); LEUK ESTERASE, URINE NEGATIVE (negative); NITRITE, URINE NEGATIVE (negative); PH, URINE 5.5 (5-7)
[2024-01-26 14:20] LABS: EPITHELIAL CELLS, URINE SQUAMOUS 2+ /lpf (0-1+)
[2024-01-26 14:21] LABS: BACTERIA, URINE RARE /hpf (negative); CRYSTALS, URINE NONE SEEN (0-1+)
[2024-01-26 14:22] LABS: CASTS, URINE HYALINE 1+ \\lpf; COLLECTION TYPE, URINE CLEAN CATCH; REFLEX CULTURE, URINE No (No)
[2024-01-26] MEDS ORDERED: hydrALAZINE HCL 20 MG/ML VIAL IV ONE ×2 (15:00→16:00)
[2024-01-26] MEDS ORDERED: LABETALOL HCL 20 MG/4 ML VIAL IV ONE (15:00)
[2024-01-26] MEDS ORDERED: ENALAPRILAT DIHYDRATE 1.25 MG/ML VIAL IV ONE (16:00)
[2024-01-26 16:40] VITALS: BP 188/69
--- NOTE | 2024-01-27 07:47 | EKG ---
[facility] [address] [facility] [place] [address] Signed Atrial fibrillation Right bundle branch block Abnormal ECG When compared with ECG of 09-NOV-2022 09:36, Atrial fibrillation has replaced Sinus rhythm Confirmed by Amrit Turner MD ([id number]) on 01/27/2024 7:47:30 AM Electronically Signed By: AMRIT TURNER MD 01/27/24 0747 PATIENT NAME: CHADLIDA KAY Electrocardiogram DATE OF : 52 PHYSICIAN: AMRIT TURNER MD REPORT #: [id number] REPORT IS CONFIDENTIAL AND NOT TO BE RELEASED WITHOUT AUTHORIZATION
== END 2024-01-26 16:40 | disposition home or self-care (01) ==
LOC: ED 11:22
PROVIDERS: Emergency Medicine
DX: E11.65 Type 2 diabetes mellitus with hyperglycemia (principal); I16.0 Hypertensive urgency; I10 Essential (primary) hypertension; J06.9 Acute upper respiratory infection, unspecified; E78.00 Pure hypercholesterolemia, unspecified; I48.91 Unspecified atrial fibrillation; F32.A Depression, unspecified; Z88.0 Allergy status to penicillin; Z79.84 Long term (current) use of oral hypoglycemic drugs; Z79.01 Long term (current) use of anticoagulants; Z79.899 Other long term (current) drug therapy
CPT/HCPCS: 36415; 71045; 80053; 81001; 83605; 83880; 84484; 85025; 87502; 93005; 93010; 96374; 96375; 96376; 99285-25; J0360; J7030; U0002